=== PATIENT | female | born 1990 | race Two or more races ===

== ENCOUNTER 2018-01-21 21:52 | Emergency (ER) | payer SELFPAY ==
[~2018-01-21] VITALS: Ht 157.5 cm; Wt 46.7 kg
--- NOTE | 2018-01-21 22:18 | NUR ---
PT A/OX4, RESPONSIVE TO VERBAL AND TACTILE STIMULI. PT C/O OF HEADACHE, NAUSEA, SHIVERS, GENERALIZED WEAKNESS, AND NO APPETITE SINCE YESTERDAY. VSS. PT DENIES PAIN, C/P, SOB, N/V/D. PT SELF-AMBULATED WITHOUT DIFFICULTY. ER MD AT BEDSIDE.
[2018-01-21 23:00] VITALS: BP 102/66
--- NOTE | 2018-01-21 23:00 | NUR ---
Patient discharged to home in stable conditon. Written and verbal after care instructions given. Patient verbalizes understanding of instructions. PT D/C W/ PRESCRIPTION. ALL BELONGINGS W/ PT. PT SELF-AMBULATED WITHOUT DIFFICULTY. FAMILY W/ PT.
== END 2018-01-21 23:01 | disposition home or self-care (01) ==
LOC: ER 21:57
DX: J02.9 Acute pharyngitis, unspecified (principal); Z91.048 Other nonmedicinal substance allergy status
CPT/HCPCS: 87400; A4663